=== PATIENT | female | born 2000 | race Caucasian/White ===

== ENCOUNTER 2018-02-09 00:18 | Inpatient (IN) | payer BC ==
[2018-02-09] MEDS: NACL 0.9% 3 ML SYG IV (03:15)
[2018-02-09] MEDS: ACETAMINOPHEN 325 MG TAB PO ×2 (03:16→14:10)
[2018-02-09 06:10] LABS: ADD MAN DIFF? NO
[2018-02-09 06:19] LABS: ABNORMAL IP MESSAGE 1; BASOPHIL # 0.1 10^3/ul (0.0-0.1); BASOPHILS % 0.5 % (0.0-2.0); EOSINOPHILS # 0.1 10^3/ul (0.0-0.5); EOSINOPHILS % 0.7 % (0.0-7.0); HEMATOCRIT 35.8 % (37.0-47.0); HEMOGLOBIN 12.1 g/dl (12.0-16.0); LYMPHOCYTES # 4.1 10^3/ul (0.8-2.9); LYMPHOCYTES % 33.8 % (18.0-55.0); MEAN CORPUSCULAR HEMOGLOBIN 31.6 pg (29.0-33.0); MEAN CORPUSCULAR HGB CONC 33.8 g/dl (32.0-37.0); MEAN CORPUSCULAR VOLUME 93.5 fl (72.0-104.0); MEAN PLATELET VOLUME 10.3 fl (7.4-10.4); MONOCYTE # 1.6 10^3/ul (0.3-0.9); MONOCYTES % 13.2 % (0.0-13.0); NEUTROPHIL # 6.2 10^3/ul (1.6-7.5); NEUTROPHILS % 51.4 % (30.0-74.0); PLATELET COUNT 296 10^3/UL (140-415); RED BLOOD COUNT 3.83 10^6/ul (4.20-5.40)
[2018-02-09 06:19] LABS: WHITE BLOOD COUNT 12.1 10^3/ul (4.8-10.8)
[2018-02-09 06:25] LABS: POSITIVE DIFF @See below
[2018-02-09 06:55] LABS: ALANINE AMINOTRANSFERASE 13 IU/L (13-69); ALBUMIN 3.9 g/dl (3.3-4.9); ALBUMIN/GLOBULIN RATIO 1.56; ALKALINE PHOSPHATASE 78 IU/L (42-121); ANION GAP 13 (5-13); ASPARTATE AMINO TRANSFERASE 27 IU/L (15-46); BILIRUBIN,INDIRECT 0.5 mg/dl (0-1.1); BILIRUBIN,TOTAL 0.5 mg/dl (0.2-1.3); BLOOD UREA NITROGEN 11 mg/dl (7-20); CALCIUM 9.2 mg/dl (8.4-10.2); CARBON DIOXIDE 27 mmol/L (21-31); CHLORIDE 101 mmol/L (97-110); CREATININE 0.57 mg/dl (0.44-1.00); Estimated GFR > 60 mL/min (>60); GLUCOSE 108 mg/dl (70-220); PHOSPHORUS 3.2 mg/dl (2.5-4.9); SODIUM 141 mmol/L (135-144); TOTAL PROTEIN 6.4 g/dl (6.1-8.1)
[2018-02-09] MEDS: HYDROCODONE/APAP (5/325) TAB PO ×2 (09:05→19:35)
[2018-02-09] MEDS: HEPARIN 5,000 UNIT/1 ML VIAL SC ×2 (09:06→23:14)
[2018-02-09] MEDS: POTASSIUM CHLORIDE (SR) 20 MEQ TAB PO (11:29)
[2018-02-09] MEDS: SOD CHLORIDE 0.9% 1,000 ML IV (11:38)
[2018-02-09 14:58] LABS: AMPHETAMINE/METHAMPHETAMINE Negative (NEGATIVE); BARBITURATES Negative (NEGATIVE); CANNABINOIDS Negative (NEGATIVE); COCAINE Negative (NEGATIVE)
[2018-02-09 15:03] LABS: BENZODIAZEPINES Positive (NEGATIVE); OPIATES Positive (NEGATIVE)
[2018-02-09] MEDS ORDERED: ZOLPIDEM 5 MG TAB PO (21:00)
[2018-02-10] MEDS: SOD CHLORIDE 0.9% 1,000 ML IV ×3 (00:17→19:35)
[2018-02-10] MEDS: HYDROCODONE/APAP (5/325) TAB PO ×2 (03:42→11:15)
[2018-02-10 06:06] LABS: ADD MAN DIFF? NO
[2018-02-10 06:10] LABS: BASOPHILS % 0.3 % (0.0-2.0); EOSINOPHILS # 0.1 10^3/ul (0.0-0.5); EOSINOPHILS % 0.9 % (0.0-7.0); HEMATOCRIT 34.8 % (37.0-47.0); HEMOGLOBIN 11.4 g/dl (12.0-16.0); LYMPHOCYTES # 2.4 10^3/ul (0.8-2.9); LYMPHOCYTES % 26.4 % (18.0-55.0); MEAN CORPUSCULAR HEMOGLOBIN 30.6 pg (29.0-33.0); MEAN CORPUSCULAR HGB CONC 32.8 g/dl (32.0-37.0); MEAN CORPUSCULAR VOLUME 93.5 fl (72.0-104.0); MEAN PLATELET VOLUME 10.2 fl (7.4-10.4); MONOCYTE # 0.9 10^3/ul (0.3-0.9); MONOCYTES % 9.9 % (0.0-13.0); NEUTROPHIL # 5.5 10^3/ul (1.6-7.5); NEUTROPHILS % 62.1 % (30.0-74.0); PLATELET COUNT 260 10^3/UL (140-415); RED BLOOD COUNT 3.72 10^6/ul (4.20-5.40); RED CELL DISTRIBUTION WIDTH 11.7 % (11.5-14.5)
[2018-02-10 06:10] LABS: WHITE BLOOD COUNT 8.9 10^3/ul (4.8-10.8)
[2018-02-10 06:28] LABS: INR 0.99; PROTIME 13.2 Sec (11.9-14.9)
[2018-02-10 06:29] LABS: PARTIAL THROMBOPLASTIN TIME 32.6 Sec (23.0-35.0)
[2018-02-10 07:02] LABS: ANION GAP 12 (5-13); BLOOD UREA NITROGEN 11 mg/dl (7-20); CALCIUM 8.9 mg/dl (8.4-10.2); CARBON DIOXIDE 26 mmol/L (21-31); CHLORIDE 104 mmol/L (97-110); CREATININE 0.57 mg/dl (0.44-1.00); Estimated GFR > 60 mL/min (>60); GLUCOSE 89 mg/dl (70-220); PHOSPHORUS 3.7 mg/dl (2.5-4.9); POTASSIUM 3.7 mmol/L (3.5-5.1); SODIUM 142 mmol/L (135-144)
[2018-02-10] MEDS: HEPARIN 5,000 UNIT/1 ML VIAL SC (10:19)
[2018-02-11] MEDS: HYDROCODONE/APAP (5/325) TAB PO (01:42)
[2018-02-11] MEDS: SOD CHLORIDE 0.9% 1,000 ML IV ×3 (01:55→19:30)
[2018-02-11] MEDS: POLYETHYLENE GLYCOL 17 GM PACKET PO (21:00)
[2018-02-12] MEDS: SOD CHLORIDE 0.9% 1,000 ML IV ×3 (05:25→21:20)
[2018-02-12 05:30] LABS: ADD MAN DIFF? NO
[2018-02-12 05:36] LABS: WHITE BLOOD COUNT 9.4 10^3/ul (4.8-10.8)
[2018-02-12 05:36] LABS: BASOPHIL # 0.1 10^3/ul (0.0-0.1); BASOPHILS % 0.5 % (0.0-2.0); EOSINOPHILS # 0.2 10^3/ul (0.0-0.5); EOSINOPHILS % 1.6 % (0.0-7.0); HEMATOCRIT 34.9 % (37.0-47.0); HEMOGLOBIN 11.8 g/dl (12.0-16.0); LYMPHOCYTES # 2.8 10^3/ul (0.8-2.9); LYMPHOCYTES % 29.4 % (18.0-55.0); MEAN CORPUSCULAR HEMOGLOBIN 31.4 pg (29.0-33.0); MEAN CORPUSCULAR HGB CONC 33.8 g/dl (32.0-37.0); MEAN CORPUSCULAR VOLUME 92.8 fl (72.0-104.0); MEAN PLATELET VOLUME 10.1 fl (7.4-10.4); MONOCYTE # 0.8 10^3/ul (0.3-0.9); MONOCYTES % 8.9 % (0.0-13.0); NEUTROPHIL # 5.6 10^3/ul (1.6-7.5); NEUTROPHILS % 59.3 % (30.0-74.0); PLATELET COUNT 304 10^3/UL (140-415); RED BLOOD COUNT 3.76 10^6/ul (4.20-5.40); RED CELL DISTRIBUTION WIDTH 11.6 % (11.5-14.5)
[2018-02-12 05:59] LABS: MAGNESIUM 2.1 mg/dl (1.7-2.5)
[2018-02-12 06:08] LABS: ANION GAP 8 (5-13); BLOOD UREA NITROGEN 9 mg/dl (7-20); CALCIUM 9.2 mg/dl (8.4-10.2); CARBON DIOXIDE 26 mmol/L (21-31); CHLORIDE 105 mmol/L (97-110); CREATININE 0.58 mg/dl (0.44-1.00); Estimated GFR > 60 mL/min (>60); GLUCOSE 89 mg/dl (70-220); POTASSIUM 3.8 mmol/L (3.5-5.1); SODIUM 139 mmol/L (135-144)
[2018-02-12] MEDS ORDERED: DESFLURANE 15 MIN (07:00)
[2018-02-12] MEDS: POLYETHYLENE GLYCOL 17 GM PACKET PO ×2 (09:00→21:00)
[2018-02-12] MEDS ORDERED: POLYMYXIN/BACITRACIN 1L IRRIG (15:36)
[2018-02-12] MEDS ORDERED: ROCURONIUM 50 MG INJ (15:50)
[2018-02-12] MEDS ORDERED: DEXAMETHASONE 4 MG/ML 1 ML INJ (15:50)
[2018-02-12] MEDS ORDERED: ROPIVACAINE 0.5 % 30 ML VIAL ×2 (15:50→16:21)
[2018-02-12] MEDS ORDERED: FENTAnyl 50 MCG/ML VIAL (15:50)
[2018-02-12] MEDS ORDERED: PROPOFOL 20 ML (15:50)
[2018-02-12] MEDS ORDERED: GLYCOPYRROLATE 0.4 MG INJ (15:50)
[2018-02-12] MEDS ORDERED: CEFAZOLIN 1 GM INJ (15:50)
[2018-02-12] MEDS ORDERED: MIDAZOLAM 1 MG/ML 2 ML INJ ×3 (15:50→17:17)
[2018-02-12] MEDS ORDERED: ONDANSETRON 4 MG INJ (15:50)
[2018-02-12] MEDS ORDERED: NEOSTIGMINE 3 MG/3 ML SYRINGE (15:50)
[2018-02-12] MEDS ORDERED: HYDROmorphONE 1 MG/5 ML IV SYRINGE IV ×3 (16:00)
[2018-02-12] MEDS ORDERED: LABETALOL HCL 20MG INJ IV (16:00)
[2018-02-12] MEDS ORDERED: IPRATROPIUM (NEB) 0.5 MG/2.5 ML AMP HHN (16:00)
[2018-02-12] MEDS ORDERED: MEPERIDINE 25 MG INJ IV (16:00)
[2018-02-12] MEDS ORDERED: OXYCODONE/ACETAMINOPHEN (5/325) TAB PO ×2 (16:00)
[2018-02-12] MEDS ORDERED: TRIMETHOBENZAMIDE 100 MG/ML VIAL IM (16:00)
[2018-02-12] MEDS ORDERED: hydrALAzine 20 MG INJ IV (16:00)
[2018-02-12] MEDS ORDERED: DIPHENHYDRAMINE 50 MG INJ IV (16:00)
[2018-02-12] MEDS ORDERED: ONDANSETRON 4 MG INJ IV (16:00)
[2018-02-12] MEDS ORDERED: EPHEDrine SULFATE 50 MG/5 ML SYG IV (16:00)
[2018-02-12] MEDS ORDERED: MIDAZOLAM 1 MG/ML 2 ML INJ IV (16:00)
[2018-02-12] MEDS ORDERED: ALBUTEROL 0.083% (NEB) 2.5 MG/3 ML AMP HHN (16:00)
[2018-02-12] MEDS ORDERED: FENTAnyl 50 MCG/ML VIAL IV ×2 (16:00)
[2018-02-12] MEDS ORDERED: PHENYLephrine (100 MCG/ML) 5ML SYG ×2 (16:36→17:46)
[2018-02-12] MEDS ORDERED: PHENYLephrine 10 MG INJ (16:36)
[2018-02-12] MEDS ORDERED: FUROSEMIDE 20 MG INJ ×2 (17:10→17:24)
[2018-02-12 17:17] LABS: AADO2 Arterial 584.3 mmHg (7.0-24.0); Allen Test ACCEPTAB; Arterial Base Excess -7.3 mmol/L (-3.0-3); Arterial Blood Gas Oxygen Sat 82.1 mmHG (95.0-98.0); Arterial COHb 0.3 % (0.0-3.0); Arterial Fraction of Oxyhgb 81.5 % (93.0-99.0); Arterial HCO3 22.6 mmol/L (22.0-26.0); Arterial MetHb 0.4 % (0.0-1.5); Arterial pCO2 68.2 mmhg (35-45); MODE VENT - AC; Site Right Radial
[2018-02-12] MEDS: FENTAnyl 50 MCG/ML VIAL IV ×2 (18:30→20:28)
[2018-02-12 19:03] LABS: AADO2 Arterial 456.4 mmHg (7.0-24.0); Arterial Base Excess -2.8 mmol/L (-3.0-3); Arterial Blood Gas Oxygen Sat 98.8 mmHG (95.0-98.0); Arterial COHb 0.1 % (0.0-3.0); Arterial Fraction of Oxyhgb 98.2 % (93.0-99.0); Arterial HCO3 27.2 mmol/L (22.0-26.0); Arterial MetHb 0.5 % (0.0-1.5); Arterial pCO2 71.2 mmhg (35-45); MODE VENT - AC; Site A-Line
[2018-02-12] MEDS: PROPOFOL 100 ML IV (20:24)
[2018-02-12 20:57] LABS: AADO2 Arterial 417.4 mmHg (7.0-24.0); Arterial Base Excess -5.8 mmol/L (-3.0-3); Arterial Blood Gas Oxygen Sat 96.9 mmHG (95.0-98.0); Arterial COHb 0 % (0.0-3.0); Arterial Fraction of Oxyhgb 96.6 % (93.0-99.0); Arterial MetHb 0.3 % (0.0-1.5); Arterial pCO2 45.7 mmhg (35-45); MODE VENT - AC; Site A-Line
[2018-02-12] MEDS: FUROSEMIDE 40 MG INJ IV (21:11)
[2018-02-12] MEDS: NORepinephrine 8MG/250 ML (PMX 250 ML IV (22:25)
[2018-02-13] MEDS: FENTAnyl (DRIP) 1000 mcg/100mL 100 ML IV (01:49)
[2018-02-13] MEDS: PROPOFOL 100 ML IV (02:10)
[2018-02-13 05:00] LABS: Arterial Base Excess -2.4 mmol/L (-3.0-3); Arterial Blood Gas Oxygen Sat 98.6 mmHG (95.0-98.0); Arterial COHb 0 % (0.0-3.0); Arterial Fraction of Oxyhgb 98.3 % (93.0-99.0); Arterial HCO3 20.4 mmol/L (22.0-26.0); Arterial MetHb 0.3 % (0.0-1.5); Arterial pCO2 30.4 mmhg (35-45); MODE VENT - AC; Site A-Line
[2018-02-13 05:24] LABS: ADD MAN DIFF? NO
[2018-02-13 05:35] LABS: ABNORMAL IP MESSAGE 1; BASOPHILS % 0.2 % (0.0-2.0); HEMATOCRIT 40.9 % (37.0-47.0); LYMPHOCYTES # 1.2 10^3/ul (0.8-2.9); MEAN CORPUSCULAR HEMOGLOBIN 30.8 pg (29.0-33.0); MEAN CORPUSCULAR HGB CONC 34.2 g/dl (32.0-37.0); MEAN CORPUSCULAR VOLUME 89.9 fl (72.0-104.0); MEAN PLATELET VOLUME 10.3 fl (7.4-10.4); MONOCYTE # 0.9 10^3/ul (0.3-0.9); MONOCYTES % 3.7 % (0.0-13.0); NEUTROPHILS % 90.4 % (30.0-74.0); PLATELET COUNT 377 10^3/UL (140-415); RED BLOOD COUNT 4.55 10^6/ul (4.20-5.40); RED CELL DISTRIBUTION WIDTH 11.8 % (11.5-14.5)
[2018-02-13 05:35] LABS: WHITE BLOOD COUNT 23.2 10^3/ul (4.8-10.8)
[2018-02-13 05:37] LABS: POSITIVE DIFF @See below
[2018-02-13 05:40] LABS: ADD UMIC YES; UR ASCORBIC ACID NEGATIVE (NEGATIVE); UR BILIRUBIN (Dip) NEGATIVE (NEGATIVE); UR BLOOD (Dip) 2+ mg/dL (NEGATIVE); UR CLARITY SLIGHTLY CLOUDY (CLEAR); UR COLOR YELLOW (YELLOW); UR GLUCOSE (Dip) NEGATIVE (NEGATIVE); UR KETONES (Dip) 1+ mg/dL (NEGATIVE); UR LEUKOCYTE ESTERASE (Dip) NEGATIVE Leu/ul (NEGATIVE); UR NITRITE (Dip) NEGATIVE (NEGATIVE); UR RBC 8 /HPF (0-5); UR TOTAL PROTEIN (Dip) NEGATIVE (NEGATIVE); UR UROBILINOGEN (Dip) NEGATIVE (NEGATIVE); UR WBC 7 /HPF (0-5)
[2018-02-13 05:57] LABS: MAGNESIUM 1.6 mg/dl (1.7-2.5)
[2018-02-13 05:57] LABS: PHOSPHORUS 5.3 mg/dl (2.5-4.9)
[2018-02-13 06:26] LABS: ANION GAP 15 (5-13); BLOOD UREA NITROGEN 13 mg/dl (7-20); CARBON DIOXIDE 23 mmol/L (21-31); CHLORIDE 100 mmol/L (97-110); CREATININE 0.72 mg/dl (0.44-1.00); Estimated GFR > 60 mL/min (>60); GLUCOSE 123 mg/dl (70-220); POTASSIUM 4.3 mmol/L (3.5-5.1); SODIUM 138 mmol/L (135-144)
[2018-02-13] MEDS: MAGNESIUM SULFATE 2 GM/50 ML 50 ML IVPB (07:57)
[2018-02-13] MEDS: POLYETHYLENE GLYCOL 17 GM PACKET PO ×2 (09:00→20:53)
[2018-02-13] MEDS: FUROSEMIDE 20 MG INJ IV ×2 (09:43→18:37)
[2018-02-13] MEDS: PANTOPRAZOLE 40 MG INJ IV ×2 (09:48→18:37)
[2018-02-13 11:29] LABS: AADO2 Arterial 221.7 mmHg (7.0-24.0); Arterial Base Excess -0.3 mmol/L (-3.0-3); Arterial Blood Gas Oxygen Sat 97.4 mmHG (95.0-98.0); Arterial COHb 0.2 % (0.0-3.0); Arterial Fraction of Oxyhgb 96.8 % (93.0-99.0); Arterial HCO3 22.8 mmol/L (22.0-26.0); Arterial MetHb 0.4 % (0.0-1.5); Blood Gas PS 10; MODE VENT - CPAP; Site A-Line
[2018-02-13] MEDS: PIPER-TAZO 3.375 GM IV (PMX) 100 ML IVPB ×2 (15:17→21:35)
[2018-02-13] MEDS: HYDROCODONE/APAP (5/325) TAB PO (19:50)
[2018-02-13] MEDS: HEPARIN 5,000 UNIT/1 ML VIAL SC (21:42)
[2018-02-14 04:42] LABS: ADD MAN DIFF? NO
[2018-02-14 04:43] LABS: WHITE BLOOD COUNT 18.1 10^3/ul (4.8-10.8)
[2018-02-14 04:43] LABS: BASOPHIL # 0.1 10^3/ul (0.0-0.1); BASOPHILS % 0.3 % (0.0-2.0); EOSINOPHILS # 0.1 10^3/ul (0.0-0.5); EOSINOPHILS % 0.5 % (0.0-7.0); HEMATOCRIT 33.3 % (37.0-47.0); HEMOGLOBIN 11.2 g/dl (12.0-16.0); LYMPHOCYTES # 3.6 10^3/ul (0.8-2.9); LYMPHOCYTES % 19.7 % (18.0-55.0); MEAN CORPUSCULAR HEMOGLOBIN 30.8 pg (29.0-33.0); MEAN CORPUSCULAR HGB CONC 33.6 g/dl (32.0-37.0); MEAN CORPUSCULAR VOLUME 91.5 fl (72.0-104.0); MONOCYTE # 1.4 10^3/ul (0.3-0.9); MONOCYTES % 7.9 % (0.0-13.0); NEUTROPHIL # 12.9 10^3/ul (1.6-7.5); NEUTROPHILS % 71.2 % (30.0-74.0); PLATELET COUNT 304 10^3/UL (140-415); RED BLOOD COUNT 3.64 10^6/ul (4.20-5.40); RED CELL DISTRIBUTION WIDTH 12.1 % (11.5-14.5)
[2018-02-14 05:04] LABS: MAGNESIUM 2.4 mg/dl (1.7-2.5)
[2018-02-14 05:04] LABS: PHOSPHORUS 3.7 mg/dl (2.5-4.9)
[2018-02-14 05:09] LABS: ALANINE AMINOTRANSFERASE 91 IU/L (13-69); ALBUMIN 3.7 g/dl (3.3-4.9); ALBUMIN/GLOBULIN RATIO 1.15; ALKALINE PHOSPHATASE 83 IU/L (42-121); ANION GAP 7 (5-13); ASPARTATE AMINO TRANSFERASE 165 IU/L (15-46); BILIRUBIN,INDIRECT 0.4 mg/dl (0-1.1); BILIRUBIN,TOTAL 0.4 mg/dl (0.2-1.3); BLOOD UREA NITROGEN 15 mg/dl (7-20); CALCIUM 8.9 mg/dl (8.4-10.2); CARBON DIOXIDE 30 mmol/L (21-31); CHLORIDE 102 mmol/L (97-110); CREATININE 0.82 mg/dl (0.44-1.00); Estimated GFR > 60 mL/min (>60); GLUCOSE 112 mg/dl (70-220); POTASSIUM 3.3 mmol/L (3.5-5.1); SODIUM 139 mmol/L (135-144); TOTAL PROTEIN 6.9 g/dl (6.1-8.1)
[2018-02-14] MEDS: PIPER-TAZO 3.375 GM IV (PMX) 100 ML IVPB ×3 (06:14→20:57)
[2018-02-14] MEDS: PANTOPRAZOLE 40 MG INJ IV ×2 (06:14→18:05)
[2018-02-14] MEDS: POTASSIUM CHLORIDE 50 ML IVPB ×2 (06:16→08:27)
[2018-02-14] MEDS: HEPARIN 5,000 UNIT/1 ML VIAL SC ×2 (08:34→20:35)
[2018-02-14] MEDS: POLYETHYLENE GLYCOL 17 GM PACKET PO ×2 (08:36→20:31)
[2018-02-14] MEDS: FUROSEMIDE 20 MG INJ IV (10:44)
[2018-02-14 15:49] LABS: B-TYPE NATRIURETIC PEPTIDE 65 PG/ML (0-125)
[2018-02-14 19:06] LABS: TROPONIN-I 0.032 ng/ml (0.000-0.120)
[2018-02-15 01:42] LABS: TROPONIN-I 0.041 ng/ml (0.000-0.120)
[2018-02-15] MEDS: HYDROCODONE/APAP (5/325) TAB PO (03:16)
[2018-02-15 05:22] LABS: WHITE BLOOD COUNT 14.9 10^3/ul (4.8-10.8)
[2018-02-15 05:22] LABS: ADD MAN DIFF? NO
[2018-02-15 05:23] LABS: BASOPHIL # 0.1 10^3/ul (0.0-0.1); BASOPHILS % 0.4 % (0.0-2.0); EOSINOPHILS # 0.2 10^3/ul (0.0-0.5); EOSINOPHILS % 1.1 % (0.0-7.0); HEMATOCRIT 33.8 % (37.0-47.0); HEMOGLOBIN 11.4 g/dl (12.0-16.0); LYMPHOCYTES # 4.3 10^3/ul (0.8-2.9); MEAN CORPUSCULAR HEMOGLOBIN 31.1 pg (29.0-33.0); MEAN CORPUSCULAR HGB CONC 33.7 g/dl (32.0-37.0); MEAN CORPUSCULAR VOLUME 92.1 fl (72.0-104.0); MEAN PLATELET VOLUME 9.9 fl (7.4-10.4); MONOCYTES % 6.4 % (0.0-13.0); NEUTROPHIL # 9.3 10^3/ul (1.6-7.5); NEUTROPHILS % 62.4 % (30.0-74.0); PLATELET COUNT 311 10^3/UL (140-415); RED BLOOD COUNT 3.67 10^6/ul (4.20-5.40); RED CELL DISTRIBUTION WIDTH 12.1 % (11.5-14.5)
[2018-02-15] MEDS: PANTOPRAZOLE 40 MG INJ IV ×2 (06:00→17:29)
[2018-02-15] MEDS: PIPER-TAZO 3.375 GM IV (PMX) 100 ML IVPB ×3 (06:03→23:02)
[2018-02-15 06:14] LABS: MAGNESIUM 2.3 mg/dl (1.7-2.5)
[2018-02-15 06:14] LABS: PHOSPHORUS 3.6 mg/dl (2.5-4.9)
[2018-02-15 06:29] LABS: TROPONIN-I 0.045 ng/ml (0.000-0.120)
[2018-02-15 06:31] LABS: ALANINE AMINOTRANSFERASE 60 IU/L (13-69); ALBUMIN 4.1 g/dl (3.3-4.9); ALBUMIN/GLOBULIN RATIO 1.17; ALKALINE PHOSPHATASE 87 IU/L (42-121); ANION GAP 11 (5-13); ASPARTATE AMINO TRANSFERASE 68 IU/L (15-46); BILIRUBIN,INDIRECT 0.3 mg/dl (0-1.1); BILIRUBIN,TOTAL 0.3 mg/dl (0.2-1.3); BLOOD UREA NITROGEN 11 mg/dl (7-20); CALCIUM 9.3 mg/dl (8.4-10.2); CARBON DIOXIDE 25 mmol/L (21-31); CHLORIDE 105 mmol/L (97-110); CREATININE 0.68 mg/dl (0.44-1.00); Estimated GFR > 60 mL/min (>60); GLUCOSE 167 mg/dl (70-220); POTASSIUM 4.1 mmol/L (3.5-5.1); SODIUM 141 mmol/L (135-144); TOTAL PROTEIN 7.6 g/dl (6.1-8.1)
[2018-02-15 08:32] LABS: CHOL/HDL RATIO 6.3 RATIO; HDL CHOLESTEROL 32 mg/dl (33-83); LDL CHOLESTEROL,CALCULATED 123 mg/dl; TRIGLYCERIDES 242 mg/dl (0-149)
[2018-02-15 08:32] LABS: CHOLESTEROL 203 mg/dl (85-185)
[2018-02-15] MEDS: POLYETHYLENE GLYCOL 17 GM PACKET PO ×2 (08:35→21:00)
[2018-02-15] MEDS: HEPARIN 5,000 UNIT/1 ML VIAL SC ×2 (08:38→22:48)
[2018-02-16] MEDS: HYDROCODONE/APAP (5/325) TAB PO ×2 (03:51→19:29)
[2018-02-16] MEDS: PANTOPRAZOLE 40 MG INJ IV ×2 (05:40→17:08)
[2018-02-16] MEDS: PIPER-TAZO 3.375 GM IV (PMX) 100 ML IVPB ×3 (05:40→21:35)
[2018-02-16 05:53] LABS: ADD MAN DIFF? NO
[2018-02-16 05:57] LABS: BASOPHIL # 0.1 10^3/ul (0.0-0.1); BASOPHILS % 0.6 % (0.0-2.0); EOSINOPHILS # 0.2 10^3/ul (0.0-0.5); EOSINOPHILS % 1.9 % (0.0-7.0); HEMATOCRIT 33.8 % (37.0-47.0); HEMOGLOBIN 11.3 g/dl (12.0-16.0); LYMPHOCYTES % 32.5 % (18.0-55.0); MEAN CORPUSCULAR HGB CONC 33.4 g/dl (32.0-37.0); MEAN CORPUSCULAR VOLUME 92.6 fl (72.0-104.0); MEAN PLATELET VOLUME 10.1 fl (7.4-10.4); MONOCYTE # 0.9 10^3/ul (0.3-0.9); MONOCYTES % 7.4 % (0.0-13.0); NEUTROPHILS % 56.2 % (30.0-74.0); PLATELET COUNT 350 10^3/UL (140-415); RED BLOOD COUNT 3.65 10^6/ul (4.20-5.40); RED CELL DISTRIBUTION WIDTH 11.8 % (11.5-14.5)
[2018-02-16 05:57] LABS: WHITE BLOOD COUNT 12.4 10^3/ul (4.8-10.8)
[2018-02-16 06:19] LABS: ANION GAP 8 (5-13); BLOOD UREA NITROGEN 10 mg/dl (7-20); CALCIUM 9.6 mg/dl (8.4-10.2); CARBON DIOXIDE 27 mmol/L (21-31); CHLORIDE 106 mmol/L (97-110); CREATININE 0.63 mg/dl (0.44-1.00); Estimated GFR > 60 mL/min (>60); GLUCOSE 98 mg/dl (70-220); POTASSIUM 4.3 mmol/L (3.5-5.1); SODIUM 141 mmol/L (135-144)
[2018-02-16 06:30] LABS: PHOSPHORUS 4.6 mg/dl (2.5-4.9)
[2018-02-16 06:30] LABS: MAGNESIUM 2.2 mg/dl (1.7-2.5)
[2018-02-16] MEDS: POLYETHYLENE GLYCOL 17 GM PACKET PO ×2 (08:57→21:00)
[2018-02-16] MEDS: HEPARIN 5,000 UNIT/1 ML VIAL SC ×2 (09:02→21:33)
[2018-02-17] MEDS: HYDROCODONE/APAP (5/325) TAB PO ×3 (03:17→21:05)
[2018-02-17] MEDS: PANTOPRAZOLE 40 MG INJ IV ×2 (05:14→17:10)
[2018-02-17] MEDS: PIPER-TAZO 3.375 GM IV (PMX) 100 ML IVPB ×3 (05:14→21:05)
[2018-02-17] MEDS: HEPARIN 5,000 UNIT/1 ML VIAL SC ×3 (09:00→21:10)
[2018-02-17] MEDS: POLYETHYLENE GLYCOL 17 GM PACKET PO ×2 (09:00→21:00)
[2018-02-18] MEDS: PIPER-TAZO 3.375 GM IV (PMX) 100 ML IVPB ×3 (05:29→23:06)
[2018-02-18] MEDS: PANTOPRAZOLE 40 MG INJ IV ×2 (05:29→17:47)
[2018-02-18] MEDS ORDERED: morphine SULFATE/PF (2 MG/2 ML) SYG IV (06:30)
[2018-02-18] MEDS ORDERED: SEVOFLURANE 15 MIN (07:00)
[2018-02-18] MEDS: HEPARIN 5,000 UNIT/1 ML VIAL SC (09:00)
[2018-02-18] MEDS: POLYETHYLENE GLYCOL 17 GM PACKET PO ×2 (09:00→21:00)
[2018-02-18 12:12] LABS: MAGNESIUM 2.3 mg/dl (1.7-2.5)
[2018-02-18] MEDS ORDERED: MIDAZOLAM 1 MG/ML 2 ML INJ ×2 (15:27→15:46)
[2018-02-18] MEDS ORDERED: FENTAnyl 50 MCG/ML VIAL ×2 (15:28→16:13)
[2018-02-18] MEDS ORDERED: morphine SULFATE/PF (10 MG/10 ML) INJ (15:28)
[2018-02-18] MEDS ORDERED: HYDROCODONE/APAP (5/325) TAB PO (15:30)
[2018-02-18] MEDS ORDERED: PHENYLephrine (100 MCG/ML) 5ML SYG (15:34)
[2018-02-18] MEDS: POLYMYXIN/BACITRACIN 1L IRRIG (16:08)
[2018-02-18] MEDS ORDERED: KETAMINE (50 MG/ML) 10 ML VIAL (16:09)
[2018-02-18] MEDS ORDERED: PROPOFOL 20 ML (17:37)
[2018-02-18] MEDS ORDERED: LIDOCAINE 2% (SDV) 5 ML INJ (17:37)
[2018-02-18] MEDS ORDERED: ONDANSETRON 4 MG INJ (17:37)
[2018-02-18] MEDS ORDERED: CEFAZOLIN 1 GM INJ (17:37)
[2018-02-18] MEDS ORDERED: MEPERIDINE 25 MG INJ IV (18:00)
[2018-02-18] MEDS ORDERED: METOCLOPRAMIDE 10 MG INJ IV (18:00)
[2018-02-18] MEDS ORDERED: HYDROmorphONE 1 MG/5 ML IV SYRINGE IV ×2 (18:00)
[2018-02-18] MEDS ORDERED: NALOXONE (0.4 MG/ML) INJ IV ×2 (18:00→18:30)
[2018-02-18] MEDS ORDERED: FENTAnyl 50 MCG/ML VIAL IV (18:00)
[2018-02-18] MEDS ORDERED: ONDANSETRON 4 MG INJ IV (18:00)
[2018-02-18] MEDS ORDERED: DIPHENHYDRAMINE 50 MG INJ IV (18:00)
[2018-02-18] MEDS: SOD CHLORIDE 0.9% 1,000 ML IV (19:00)
[2018-02-18] MEDS: ONDANSETRON 4 MG INJ IV (23:03)
[2018-02-19] MEDS: SOD CHLORIDE 0.9% 1,000 ML IV (01:07)
[2018-02-19] MEDS: PANTOPRAZOLE 40 MG INJ IV ×2 (05:12→17:50)
[2018-02-19] MEDS: HYDROCODONE/APAP (5/325) TAB PO ×3 (05:12→19:50)
[2018-02-19] MEDS: PIPER-TAZO 3.375 GM IV (PMX) 100 ML IVPB (05:13)
[2018-02-19 06:41] LABS: ADD MAN DIFF? NO
[2018-02-19 06:48] LABS: WHITE BLOOD COUNT 11.4 10^3/ul (4.8-10.8)
[2018-02-19 06:48] LABS: BASOPHIL # 0.1 10^3/ul (0.0-0.1); BASOPHILS % 0.4 % (0.0-2.0); EOSINOPHILS # 0.1 10^3/ul (0.0-0.5); EOSINOPHILS % 0.6 % (0.0-7.0); HEMOGLOBIN 10.1 g/dl (12.0-16.0); LYMPHOCYTES # 2.2 10^3/ul (0.8-2.9); LYMPHOCYTES % 19.5 % (18.0-55.0); MEAN CORPUSCULAR HGB CONC 32.6 g/dl (32.0-37.0); MEAN CORPUSCULAR VOLUME 95.1 fl (72.0-104.0); MEAN PLATELET VOLUME 9.7 fl (7.4-10.4); MONOCYTE # 1.1 10^3/ul (0.3-0.9); MONOCYTES % 9.5 % (0.0-13.0); NEUTROPHIL # 7.9 10^3/ul (1.6-7.5); NEUTROPHILS % 69.3 % (30.0-74.0); PLATELET COUNT 343 10^3/UL (140-415); RED BLOOD COUNT 3.26 10^6/ul (4.20-5.40); RED CELL DISTRIBUTION WIDTH 11.9 % (11.5-14.5)
[2018-02-19 07:09] LABS: ANION GAP 9 (5-13); BLOOD UREA NITROGEN 6 mg/dl (7-20); CALCIUM 9.2 mg/dl (8.4-10.2); CARBON DIOXIDE 29 mmol/L (21-31); CHLORIDE 102 mmol/L (97-110); CREATININE 0.61 mg/dl (0.44-1.00); Estimated GFR > 60 mL/min (>60); GLUCOSE 116 mg/dl (70-220); POTASSIUM 3.9 mmol/L (3.5-5.1); SODIUM 140 mmol/L (135-144)
[2018-02-19] MEDS: POLYETHYLENE GLYCOL 17 GM PACKET PO (08:13)
[2018-02-19] MEDS: morphine SULFATE/PF (2 MG/2 ML) SYG IV ×3 (09:00→18:01)
[2018-02-19] MEDS: AMOXICILLIN/CLAV 875 MG TAB PO (20:52)
[2018-02-20] MEDS: morphine SULFATE/PF (2 MG/2 ML) SYG IV (01:15)
[2018-02-20] MEDS: PANTOPRAZOLE 40 MG INJ IV (06:12)
[2018-02-20] MEDS: HYDROCODONE/APAP (5/325) TAB PO ×2 (06:17→14:03)
[2018-02-20 06:34] LABS: ADD MAN DIFF? NO
[2018-02-20 06:48] LABS: WHITE BLOOD COUNT 11.5 10^3/ul (4.8-10.8)
[2018-02-20 06:48] LABS: BASOPHIL # 0.1 10^3/ul (0.0-0.1); BASOPHILS % 0.4 % (0.0-2.0); EOSINOPHILS # 0.2 10^3/ul (0.0-0.5); EOSINOPHILS % 2.1 % (0.0-7.0); HEMOGLOBIN 10.7 g/dl (12.0-16.0); LYMPHOCYTES # 2.8 10^3/ul (0.8-2.9); LYMPHOCYTES % 24.1 % (18.0-55.0); MEAN CORPUSCULAR HEMOGLOBIN 30.8 pg (29.0-33.0); MEAN CORPUSCULAR HGB CONC 32.4 g/dl (32.0-37.0); MEAN CORPUSCULAR VOLUME 95.1 fl (72.0-104.0); MEAN PLATELET VOLUME 9.4 fl (7.4-10.4); MONOCYTE # 1.3 10^3/ul (0.3-0.9); MONOCYTES % 11.5 % (0.0-13.0); NEUTROPHILS % 60.9 % (30.0-74.0); PLATELET COUNT 398 10^3/UL (140-415); RED BLOOD COUNT 3.47 10^6/ul (4.20-5.40); RED CELL DISTRIBUTION WIDTH 12.1 % (11.5-14.5)
[2018-02-20 07:05] LABS: ANION GAP 8 (5-13); CALCIUM 9.3 mg/dl (8.4-10.2); CARBON DIOXIDE 29 mmol/L (21-31); CHLORIDE 104 mmol/L (97-110); CREATININE 0.63 mg/dl (0.44-1.00); Estimated GFR > 60 mL/min (>60); GLUCOSE 105 mg/dl (70-220); POTASSIUM 3.6 mmol/L (3.5-5.1); SODIUM 141 mmol/L (135-144)
[2018-02-20 07:06] LABS: BLOOD UREA NITROGEN < 2 mg/dl (7-20)
[2018-02-20] MEDS: AMOXICILLIN/CLAV 875 MG TAB PO (08:56)
[2018-02-20] MEDS: POLYETHYLENE GLYCOL 17 GM PACKET PO (08:56)
[2018-02-20] MEDS ORDERED: morphine LIQ (10 MG/5 ML) CUP PO (15:00)
== END 2018-02-20 16:25 | disposition home or self-care (01) | DRG 492 ==
LOC: 2NE 00:18 → 6WM 02-15 00:51 → ICU 02-12 18:16 → 2NE 02-16 15:48
PROC: 0QSJ04Z Reposition Right Fibula with Internal Fixation Device, Open Approach (ICD-10-PCS; principal; 2018-02-12 15:56)
PROC: 5A1935Z Respiratory Ventilation, Less than 24 Consecutive Hours (ICD-10-PCS; 2018-02-12 15:56)
PROC: 0BH17EZ Insertion of Endotracheal Airway into Trachea, Via Natural or Artificial Opening (ICD-10-PCS; 2018-02-12 15:56)
PROC: 5A12012 Performance of Cardiac Output, Single, Manual (ICD-10-PCS; 2018-02-12 15:56)
PROC: 05HM33Z Insertion of Infusion Device into Right Internal Jugular Vein, Percutaneous Approach (ICD-10-PCS; 2018-02-12 15:56)
PROC: 03HB33Z Insertion of Infusion Device into Right Radial Artery, Percutaneous Approach (ICD-10-PCS; 2018-02-12 15:56)
PROC: 0BP1XDZ Removal of Intraluminal Device from Trachea, External Approach (ICD-10-PCS; 2018-02-12 15:56)
DX: S82.851A Displaced trimalleolar fracture of right lower leg, initial encounter for closed fracture (principal); J96.01 Acute respiratory failure with hypoxia; J69.0 Pneumonitis due to inhalation of food and vomit; I26.99 Other pulmonary embolism without acute cor pulmonale; D64.9 Anemia, unspecified; D72.829 Elevated white blood cell count, unspecified; E78.5 Hyperlipidemia, unspecified; I95.9 Hypotension, unspecified; R00.1 Bradycardia, unspecified; R00.0 Tachycardia, unspecified; X58.XXXA Exposure to other specified factors, initial encounter; Y93.43 Activity, gymnastics; Z53.09 Procedure and treatment not carried out because of other contraindication
CPT/HCPCS: 36600; 71045; 73610-RT; 73700; 80048; 80053; 80061; 80307; 81001; 82803; 83735; 83880; 84100; 84484; 84703; 85025; 85610; 85730; 90686; 93005; 93306; 93970; 94002; 94003; 94770; 97116; 97161; 97162; 97530